=== PATIENT | female | born 1945 | race Caucasian/White ===

== ENCOUNTER 2016-12-28 12:25 | Emergency (ER) | payer MEDICARE, OTHER ==
[2016-12-28 12:33] VITALS: BP 150/80
--- NOTE | 2016-12-28 12:44 | ED Physician Documentation ---
PD HPI UPPER EXT INJURY - Stated complaint Stated Complaint: FINGER LAC - Chief complaint Chief Complaint: Ext Problem - History obtained from History obtained from: Patient - History of Present Illness Location: Other (She is up-to-date on tetanus, she cut her right fourth finger and less so the right middle finger while driving a knife at home just prior to arrival.) Review of Systems Constitutional: reports: Reviewed and negative Cardiac: reports: Reviewed and negative Respiratory: reports: Reviewed and negative PD PAST MEDICAL HISTORY - Past Medical History Past Medical History: No Neuro: None - Past Surgical History Past Surgical History: Yes General: Bowel surgery - Present Medications Home Medications: Ambulatory Orders Medication Instructions Recorded Confirmed Sleeping Pill 12/28/16 - Allergies Allergies/Adverse Reactions: Allergies Allergy/AdvReac Type Severity Reaction Status Date / Time Sulfa (Sulfonamide Allergy Anaphylaxis Verified 12/28/16 12:33 Antibiotics) - Social History Does the pt smoke?: No Smoking Status: Never smoker PD ED PE NORMAL - Vitals Vital signs reviewed: Yes - General General: Alert and oriented X 3, No acute distress - Extremities Extremities: Other (On the pulp of the fourth finger on the right side there is moderately deep lack into the pulp only that measures 1 cm. She is neurovascular intact distally. There is just a little scratch on the third finger.) - Neuro Neuro: Alert and oriented X 3, Normal speech Results - Vitals Vitals: Vital Signs - 24 hr 12/28/16 12:31 Temperature 36.9 C Heart Rate 96 Respiratory 18 Rate Blood Pressure 150/80 H O2 Saturation 96 Oxygen O2 Source Room air Procedures - Laceration (location) R 3rd finger Length in cm: 1 Wound type: Linear Neurovascular status: Sensory intact, Motor intact, Vascular intact Anesthesia: OTH (digital block with buffered lidocaine) Wound Preparation: Betadine, Irrigated copiously NS Skin layer closure: Nylon, Size #-0 - enter number (5-0), Sutures - enter # (3) Other: Tetanus UTD Complexity: Simple Departure - Departure Disposition: 01 Home, Self Care Clinical Impression: Laceration of finger of left hand Qualifiers: Encounter type: initial encounter Finger: ring finger Damage to nail status: without damage Foreign body presence: without foreign body Qualified Code(s): S61.215A - Laceration without foreign body of left ring finger without damage to nail, initial encounter Condition: Good Record reviewed to determine appropriate education?: Yes Instructions: ED Laceration Hand Comments: Come back for any signs of infection which would include: Redness, swelling, drainage, increased pain, or fevers. Follow-up with your physician in 10-14 days for suture removal. Your blood pressure was elevated today on check into the emergency department. This does not mean that you have hypertension, it is a common phenomenon to come to the emergency department and have elevated blood pressure. I recommend that you see your primary care physician within the week to have it rechecked when you are feeling better.
[2016-12-28] MEDS ORDERED: BUFFERED LIDOCAINE 10 ML SYRINGE ONE (12:50)
== END 2016-12-28 13:08 | disposition home or self-care (01) ==
LOC: ED 12:25
DX: S61.215A Laceration without foreign body of left ring finger without damage to nail, initial encounter (principal); S61.216A Laceration without foreign body of right little finger without damage to nail, initial encounter; W26.0XXA Contact with knife, initial encounter; Y93.G1 Activity, food preparation and clean up; Y92.009 Unspecified place in unspecified non-institutional (private) residence as the place of occurrence of the external cause; R03.0 Elevated blood-pressure reading, without diagnosis of hypertension
CPT/HCPCS: 12001; 99282; 99283

== ENCOUNTER 2020-05-15 07:12 | Outpatient (CLI) | payer MEDICARE, OTHER ==
--- NOTE | 2020-05-15 10:40 | XRAY Report ---
PROCEDURE: Wrist 3 View LT INDICATIONS: LEFT WRIST PAIN TECHNIQUE: 3 views of the wrist were acquired. COMPARISON: None FINDINGS: Bones: Comminuted, intra-articular fracture of the distal radius. Fracture fragments are mildly impac marvel and displaced. Soft tissues: No suspicious soft tissue calcifications. IMPRESSION: Comminuted, intra-articular distal radius fracture. Reviewed by: Manda Bueno MD, PhD on 05/15/2020 10:38 AM PDT Approved by: Manda Bueno MD, PhD on 05/15/2020 10:38 AM PDT Station ID: [id number]
--- NOTE | 2020-05-15 10:56 | XRAY Report ---
PROCEDURE: Hand 3 View LT INDICATIONS: LEFT HAND PAIN TECHNIQUE: 3 views of the hand(s) acquired. COMPARISON: None FINDINGS: Bones: Comminuted, intra-articular fracture of the distal radius. Mildly displaced fracture of the ul mai styloid process. Soft tissues: No suspicious soft tissue calcifications. IMPRESSION: Comminuted, intra-articular distal radius fracture and ulnar styloid process fracture. Reviewed by: Mnada Bueno MD, PhD on 05/15/2020 10:54 AM PDT Approved by: Manda Bueno MD, PhD on 05/15/2020 10:54 AM PDT Station ID: [id number]
== END 2020-05-15 07:13 | disposition home or self-care (01) ==
LOC: DI.N 07:12
PROVIDERS: ATTEND Physician Assistant
DX: M25.532 Pain in left wrist (principal); M79.642 Pain in left hand; S52.572A Other intraarticular fracture of lower end of left radius, initial encounter for closed fracture; S52.612A Displaced fracture of left ulna styloid process, initial encounter for closed fracture

== ENCOUNTER 2020-06-14 08:00 | Outpatient (CLI) | payer MEDICARE, OTHER | END 2020-06-14 23:59 | disposition home or self-care (01) | LOC: LAB.S 08:00 | PROVIDERS: ATTEND Physician Assistant | DX: L72.0 Epidermal cyst (principal) | CPT/HCPCS: 87070; 87205 ==

== ENCOUNTER 2020-06-16 18:41 | Outpatient (CLI) | payer MEDICARE, OTHER ==
--- NOTE | 2020-06-16 16:49 | XRAY Report ---
PROCEDURE: Hand 3 View LT INDICATIONS: L HAND PX TECHNIQUE: 3 views of the hand(s) acquired. COMPARISON: X-ray hand and wrist 05/15/2020 FINDINGS: Bones: Stable alignment of comminuted and impacted distal radial and ulnar fractures. Intra-articular extension is present. Soft tissues: No suspicious soft tissue calcifications. IMPRESSION: Stable appearance of intra-articular, comminuted impacted distal radial and ulnar fractures. Reviewed by: Christiana Gamboa MD on 06/16/2020 4:47 PM PDT Approved by: Christiana Gamboa MD on 06/16/2020 4:47 PM PDT Station ID: [id number]
--- NOTE | 2020-06-16 16:49 | XRAY Report ---
PROCEDURE: Wrist 3 View LT INDICATIONS: COLLES FX OF L RADIUS TECHNIQUE: 3 views of the wrist were acquired. COMPARISON: X-ray hand and wrist 05/15/2020 FINDINGS: Bones: Stable appearance of comminuted, intra-articular and impacted distal radial and ulnar fracture s. Alignment is stable. Soft tissues: No suspicious soft tissue calcifications. IMPRESSION: Stable alignment of comminuted, intra-articular distal radial and ulnar fractures. Reviewed by: Christiana Gamboa MD on 06/16/2020 4:48 PM PDT Approved by: Christiana Gamboa MD on 06/16/2020 4:48 PM PDT Station ID: [id number]
== END 2020-06-16 23:59 | disposition home or self-care (01) ==
LOC: DI.N 18:41
PROVIDERS: ATTEND Physician Assistant
DX: S52.572D Other intraarticular fracture of lower end of left radius, subsequent encounter for closed fracture with routine healing (principal); S52.602D Unspecified fracture of lower end of left ulna, subsequent encounter for closed fracture with routine healing

== ENCOUNTER 2023-01-10 08:00 | Outpatient (CLI) | payer MEDICARE, BC ==
--- NOTE | 2023-01-11 09:07 | XRAY Report ---
PROCEDURE: Chest 2 View X-Ray INDICATIONS: UPPER RESPIRATORY INFECTION TECHNIQUE: 2 views of the chest were acquired. COMPARISON: None. FINDINGS: Surgical changes and devices: None. Lungs and pleura: No pleural effusions or pneumothorax. Lungs are clear. Mediastinum: Mediastinal contours appear normal. Heart size is normal. Bones and chest wall: No suspicious bony lesions. Overlying soft tissues appear unremarkable. IMPRESSION: No acute cardiopulmonary process. Reviewed by: Florentin Gunn MD on 01/11/2023 9:06 AM [facility] Approved by: Florentin Gunn MD on 01/11/2023 9:06 AM [facility] Station ID: [id number]
== END 2023-01-10 23:59 | disposition home or self-care (01) ==
LOC: DI.S 08:00
PROVIDERS: ATTEND Physician Assistant
DX: J06.9 Acute upper respiratory infection, unspecified (principal)